=== PATIENT | female | born 2000 | race American Indian/Alaskan Native ===

== ENCOUNTER 2021-01-22 06:09 | Emergency (ER) | payer OTHER ==
[2021-01-22 06:19] VITALS: TEMP 97.6; BMI 17.7
[2021-01-22 09:14] VITALS: BP 98/62; PULSE 72
== END 2021-01-22 09:10 | disposition home or self-care (01) ==
LOC: JER 06:09
DX: R55 Syncope and collapse (principal)
CPT/HCPCS: 36415; 82962; 84703; 93005; 93010; 99285-25

== ENCOUNTER 2021-04-16 10:28 | Emergency (ER) | payer OTHER ==
[2021-04-16 10:49] VITALS: TEMP 97.6; BMI 17.4
[2021-04-16 11:59] LABS: BASO % 1.1 % (0-2.0); EOS % 1.7 % (0-4.5); HEMATOCRIT 39.1 % (32.4-45.2); HEMOGLOBIN 12.4 GM/dL (10.7-15.3); MCH 26.8 pg (25.7-33.7); MCHC 31.7 g/dl (32.0-36.0); MEAN CELL VOLUME 84.6 fl (80-96); MEAN PLT VOLUME 8.2 fl (7.5-11.1); MONO % 5.7 % (3.8-10.2); NEUT % 48.5 % (42.8-82.8); PLATELET COUNT 266 10^3/uL (134-434); RBC 4.62 M/mm3 (3.60-5.2); RDW 13.9 % (11.6-15.6); WHITE BLOOD COUNT 5.1 K/mm3 (4.0-10.0)
[2021-04-16 12:16] LABS: CALCIUM 9.1 mg/dL (8.5-10.1)
[2021-04-16 12:17] LABS: ALBUMIN 4.4 g/dl (3.4-5.0)
[2021-04-16 12:20] LABS: CREATININE 0.7 mg/dL (0.55-1.3)
[2021-04-16 12:21] LABS: BILIRUBIN,TOTAL 0.4 mg/dL (0.2-1); TOT PROT 8.2 g/dl (6.4-8.2)
[2021-04-16 12:34] LABS: EPI CELLS 33 /uL (0-25.1); HCG,QUALITATIVE URINE Negative; HYALINE CASTS 7 /uL (0-3.1); PH,URINE 5.5 (5.0-8.0); URINE APPEARANCE CLOUDY; URINE BACTERIA 733 /uL (0-1359); URINE BILIRUBIN NEGATIVE (NEGATIVE); URINE COLOR YELLOW; URINE GLUCOSE (UA) NEGATIVE (NEGATIVE); URINE KETONE TRACE (NEGATIVE); URINE LEUK ESTERASE 2+ (NEGATIVE); URINE NITRITE NEGATIVE (NEGATIVE); URINE PROTEIN 1+ (NEGATIVE); URINE RBC 25 /uL (0-23.9); URINE WBC 170 /uL (0-25.8)
[2021-04-16] MEDS ORDERED: CEPHALEXIN MONOHYDRATE 500 MG CAPSULE (UD) PO ONE (14:01)
[2021-04-16] MEDS ORDERED: CEPHALEXIN MONOHYDRATE 500 MG CAPSULE (UD) ONE (14:29)
[2021-04-16 15:12] VITALS: BP 103/66; PULSE 81
== END 2021-04-16 14:45 | disposition home or self-care (01) ==
LOC: JER 10:28
DX: R10.84 Generalized abdominal pain (principal); N39.0 Urinary tract infection, site not specified
CPT/HCPCS: 36415; 76856-TC; 80053; 81003; 82962; 84703; 85025; 87086; 93005; 93010; 99285-25

== ENCOUNTER 2022-05-26 17:48 | Emergency (ER) | payer BC, OTHER ==
[2022-05-26 17:54] VITALS: BP 128/86; RESP 18; TEMP 98.1; BMI 17.7
[2022-05-26] MEDS ORDERED: ACETAMINOPHEN 500 MG TABLET (FP) PO ONE (18:19)
[2022-05-26 19:03] VITALS: PULSE 72
== END 2022-05-26 19:24 | disposition home or self-care (01) ==
LOC: JER 17:48
DX: U07.1 COVID-19 (principal)
CPT/HCPCS: 99283-25